=== PATIENT | male | born 1945 | race Caucasian/White ===

== ENCOUNTER → 2017-07-03 | Outpatient (CLI) | payer MEDICARE, BC ==
[~2017-07-03] MED LIST: ATORVASTATIN CA10 M1 PO; BACTROBAN23 TP; CETIRIZINE HCL10 MG PO; CLONAZEPAM 1MG T1 MG PO; COLCHICINE 0.60.6 MG PO; CYCLOBENZAPRINE10 MG PO; DIAZEPAM2 MG PO; FOLBIC RF1 TAB PO; GABAPENTIN 600600 MG PO; HEALTHY HEART1 EACH PO; LASIX 20MG. TAB20 MG PO; LEVAQUIN 750 M750 MG PO; MECLIZINE HYD12.5 MG PO; MECLIZINE HYDRO25 MG PO; MEDROL 4MG. DOSE4 MG PO; MELOXICAM15 MG PO; MIRAPEX PO; PREDNISONE 20MG20 MG PO; ROPINIROLE 0.0.25 MG PO; TRAZODONE50 MG PO; VALIUM 2MG TABLE2 MG PO; VIT C-BIOFLAVO1 EACH PO
[2017-07-03 11:53] LABS: LYMPH # 1.6 K/mm3 (0.7-4.5); LYMPH % 32.3 % (10-50)
[2017-07-03 12:02] LABS: HEMOGLOBIN 15.3 g/dL (14.1-18.0)
[2017-07-04 08:46] LABS: Vitamin D, 25-Hydroxy 30.5 ng/mL (30.0-100.0)
[2017-07-04 09:38] LABS: HBsAg Screen Negative (Negative); Hep A Ab, IgM Negative (Negative); Hep B Core Ab, IgM Negative (Negative); Hep C Virus Ab <0.1 (0.0-0.9); LH 3.6 mIU/mL (1.7-8.6); Vitamin B12 491 pg/mL (211-946)
[2017-07-07 14:37] LABS: Testosterone, Total, LC/MS 189.1 ng/dL (264.0-916.0)
== END ==
LOC: LAB 10:58
PROVIDERS: Internal Medicine Endocrinology, Diabetes & Metabolism
DX: R94.5 Abnormal results of liver function studies (principal); E05.90 Thyrotoxicosis, unspecified without thyrotoxic crisis or storm; D53.9 Nutritional anemia, unspecified; D51.0 Vitamin B12 deficiency anemia due to intrinsic factor deficiency; E55.9 Vitamin D deficiency, unspecified; E27.0 Other adrenocortical overactivity; E29.1 Testicular hypofunction; E10.9 Type 1 diabetes mellitus without complications; Z12.5 Encounter for screening for malignant neoplasm of prostate
CPT/HCPCS: G0103

== ENCOUNTER → 2017-07-07 | Outpatient (CLI) | payer MEDICARE, BC | LOC: LAB 13:19 | DX: R94.5 Abnormal results of liver function studies (principal); E05.90 Thyrotoxicosis, unspecified without thyrotoxic crisis or storm; D53.9 Nutritional anemia, unspecified; D51.0 Vitamin B12 deficiency anemia due to intrinsic factor deficiency; E55.9 Vitamin D deficiency, unspecified; E27.0 Other adrenocortical overactivity; E29.1 Testicular hypofunction; E88.1 Lipodystrophy, not elsewhere classified ==